=== PATIENT | male | born 1990 | race Caucasian/White ===

== ENCOUNTER 2021-02-11 10:10 | Emergency (ER) | payer OTHER ==
[2021-02-11 10:18] VITALS: RESP 16
--- NOTE | 2021-02-11 11:54 | XR ---
EXAMINATION TYPE: XR knee complete RT DATE OF EXAM: 02/11/2021 COMPARISON: NONE HISTORY: Pain TECHNIQUE: Three views are submitted. FINDINGS: Joint spaces are preserved. Osseous structures are intact. No acute fracture seen. Postsurgical ch anges noted. There is nonspecific sclerosis involving the tibia. Small suprapatellar bursal fluid col lection. Arthropathy of the knee joints. Metallic density adjacent to the lateral femoral condyle cor relate clinically. IMPRESSION: 1. No acute fracture or dislocation. Postsurgical changes are noted with arthropathy. There is sclero tic changes involving the tibia which could be postsurgical related to previous trauma although bone infarct or osseous lesion not entirely excluded.
--- NOTE | 2021-02-11 12:08 | ED ---
General Adult HPI - General Chief complaint: Extremity Injury, Lower Stated complaint: Knee inury Time Seen by Provider: 02/11/21 10:19 Source: patient Mode of arrival: ambulatory Limitations: no limitations - History of Present Illness Initial comments: 30-year-old male presents to the emergency room for chief complaint of right knee pain. Patient states a month ago he fell on the right knee and it has been hurting him some ever since. However today he was walking on the stairs and felt a pop in his knee give out. States that it hasn't painful since that time. States it hurts to strain out all the way. States it hurts to bend and walk on. Patient does have a history of ACL rupture with repair several years ago out of town. Patient denies any fevers or chills.Patient has no other complaints at this time including shortness of breath, chest pain, abdominal pain, nausea or vomiting, headache, or visual changes. - Related Data Home Medications Medication Instructions Recorded Confirmed No Known Home Medications 02/11/21 02/11/21 Allergies Allergy/AdvReac Type Severity Reaction Status Date / Time No Known Allergies Allergy Verified 02/11/21 11:10 Review of Systems ROS Statement: Those systems with pertinent positive or pertinent negative responses have been documented in the HPI. ROS Other: All systems not noted in ROS Statement are negative. Past Medical History Past Medical History: No Reported History History of Any Multi-Drug Resistant Organisms: None Reported Past Surgical History: Appendectomy, Orthopedic Surgery Past Psychological History: No Psychological Hx Reported Smoking Status: Current every day smoker Past Alcohol Use History: Rare Past Drug Use History: Marijuana General Exam Limitations: no limitations General appearance: alert Head exam: Present: atraumatic Eye exam: Present: normal appearance, PERRL, EOMI. Absent: scleral icterus ENT exam: Present: normal exam, mucous membranes moist Neck exam: Present: normal inspection, full ROM. Absent: tenderness Respiratory exam: Present: normal lung sounds bilaterally. Absent: respiratory distress, wheezes Cardiovascular Exam: Present: regular rate, normal rhythm, normal heart sounds GI/Abdominal exam: Present: soft, normal bowel sounds. Absent: distended, tenderness Extremities exam: Present: normal capillary refill (cap refill < 2 seconds, dp pulse 2+ RLE). Absent: full ROM (Patient some limited extension of the right knee. Able to flex the about 90.), tenderness, joint swelling (No swelling in the right knee), calf tenderness Course Vital Signs 02/11/21 10:14 Temperature 99 F Pulse Rate 79 Respiratory 16 Rate Blood Pressure 130/79 O2 Sat by Pulse 97 Oximetry Medical Decision Making - Medical Decision Making X-ray of the right knee shows no acute fracture or dislocation however there are sclerotic changes involving the tibia which could be postsurgical related to previous trauma although bone infarct or osseous lesion not entirely excluded. Patient will need to follow-up with orthopedics for further evaluation of this. However today patient's pain is mechanical which occurred after an injury walking on the stairs when he felt a pop. Patient is able to ambulate on the right leg. Patient did not want any Motrin or Tylenol or any other pain medication. States he threw that up to take anything. He does have a knee brace on which she will continue to wear. He will return for any worsening sy mptoms. Otherwise he will follow-up with orthopedics for likely MRI Disposition Clinical Impression: Knee pain, Bone lesion Disposition: HOME SELF-CARE Condition: Good Instructions (If sedation given, give patient instructions): Knee Pain (ED) Additional Instructions: Please take Motrin and Tylenol for pain. Rest ice and elevate the right knee. Continue to use your knee brace. Follow-up with orthopedics by calling for the earliest appointment. Return to the emergency room for any worsening symptoms. Is patient prescribed a controlled substance at d/c from ED?: No Referrals: Nomi Franz MD [Medical Doctor] - 1-2 days Time of Disposition: 12:07
[2021-02-11 12:41] VITALS: BP 161/78; PULSE 78; TEMP 98.2
== END 2021-02-11 12:40 | disposition home or self-care (01) ==
LOC: EC 10:10
DX: M25.561 Pain in right knee (principal); M89.9 Disorder of bone, unspecified; F17.200 Nicotine dependence, unspecified, uncomplicated; F12.90 Cannabis use, unspecified, uncomplicated; Z90.49 Acquired absence of other specified parts of digestive tract
CPT/HCPCS: 99283

== ENCOUNTER → 2021-03-25 | Outpatient (CLI) | payer OTHER ==
--- NOTE | 2021-03-26 02:29 | MR ---
EXAMINATION TYPE: MR knee RT wo con DATE OF EXAM: 03/25/2021 COMPARISON: None HISTORY: Right knee pain, prior surgery Multiplanar multiecho imaging of the right knee without contrast. There is altered signal in the proximal tibia and distal femur related to reconstructive surgery. The posterior cruciate ligament is intact. Anterior cruciate ligament is not identified. There is no nasreen dence of a fracture. The collateral ligaments appear intact. There is mild knee joint effusion. I see no evidence of a meniscal tear. There is some thinning of the posterior horn of the lateral meniscus . There is some mild increased signal in the subchondral lateral femoral condyle. IMPRESSION: Mild knee joint effusion. Previous surgery. Anterior cruciate ligament not identified. This is consis tent with a complete anterior cruciate ligament tear. No fracture. There is some mild narrowing of the lateral joint space. There is some thinning of the p osterior horn lateral meniscus. Early degenerative cyst formation in the lateral femoral condyle.
== END | disposition home or self-care (01) ==
LOC: RADMRIMAIN 20:05
PROVIDERS: ATTEND Orthopaedic Surgery
DX: M25.461 Effusion, right knee (principal)

== ENCOUNTER 2022-06-08 11:48 | Emergency (ER) | payer OTHER ==
[2022-06-08 11:52] VITALS: BP 142/86; PULSE 105; RESP 20; TEMP 98.2
--- NOTE | 2022-06-08 12:47 | ED ---
Neck Injury/Pain HPI - General Source: patient, RN notes reviewed Mode of arrival: ambulatory Limitations: no limitations <Alexander Ghosh - Last Filed: 06/08/22 12:47> - General Source: patient, RN notes reviewed Mode of arrival: ambulatory Limitations: no limitations <Abeba Cain - Last Filed: 06/08/22 14:25> - General Chief Complaint: Neck Pain/Injury Stated Complaint: bilat hand numbness, tingling Time Seen by Provider: 06/08/22 12:47 - History of Present Illness Initial Comments: 31-year-old male presents emergency Department chief complaint of neck pain. Patient states that he started having some neck pain but he's been having ongoing hand numbness. He states he is having pain radiating down his arm. Patient states that it's onset lightning bolt starts arms. He denies any rectal fissures work obtained work denies any new medications. Denies chest pain or shortness of breath. (Alexander Ghosh) Patient is a 31-year-old male presenting to the emergency room with complaints of neck pain along with bilateral hand numbness. He reports that his hand numbness has been ongoing for approximately 3 weeks and oxide 4 days ago he woke up with a stiff neck and has been having neck pain with shooting "electrical shock" sensations down his spine since that time he woke up with the neck pain. He has not taken any medication to treat his condition. He denies any weakness headache or dizziness. He denies any chest pain, shortness of breath, abdominal pain, nausea, vomiting, fevers or chills. He denies any known trauma or previous carpal tunnel syndrome. He has no significant past medical history and does not take any medications on a regular basis. (Abeba Cain) - Related Data Previous Rx's Medication Instructions Recorded predniSONE [Deltasone] 20 mg PO BID 5 Days #10 tab 06/08/22 Allergies Allergy/AdvReac Type Severity Reaction Status Date / Time No Known Allergies Allergy Verified 06/08/22 13:40 Review of Systems ROS Other: All systems not noted in ROS Statement are negative. <Alexander Ghosh - Last Filed: 06/08/22 12:47> ROS Other: All systems not noted in ROS Statement are negative. <Abeba Cain - Last Filed: 06/08/22 14:25> ROS Statement: Those systems with pertinent positive or pertinent negative responses have been documented in the HPI. Past Medical History Past Medical History: No Reported History History of Any Multi-Drug Resistant Organisms: None Reported Past Surgical History: Appendectomy, Orthopedic Surgery Past Psychological History: No Psychological Hx Reported Smoking Status: Current every day smoker Past Alcohol Use History: Rare Past Drug Use History: Marijuana <Alexander Ghosh - Last Filed: 06/08/22 12:47> Past Medical History: No Reported History History of Any Multi-Drug Resistant Organisms: None Reported Past Surgical History: Appendectomy, Orthopedic Surgery Past Psychological History: No Psychological Hx Reported Smoking Status: Current every day smoker Past Alcohol Use History: Rare Past Drug Use History: Marijuana <Abeba Cain - Last Filed: 06/08/22 14:25> General Exam Limitations: no limitations <Alexander Ghosh - Last Filed: 06/08/22 12:47> <Abeba Cain - Last Filed: 06/08/22 14:25> - General Exam Comments Initial Comments: GENERAL: No acute distress, well developed, well nourished. HEENT: Normocephalic, atraumatic. Pupils equal, round, reactive to light. Moist mucous membranes. LUNGS: No respiratory distress or use of accessory muscles. HEART: Regular rate.. ABDOMEN: Non-distended. BACK: Normal inspection. No spinal tenderness or muscle spasms noted. EXTREMITIES: No edema. No tenderness. Moves all extremities. Bilateral upper extremities strong 5/5. Positive Phalen test. NEUROLOGIC: Alert & oriented x 3. CN II-XII grossly intact. PSYCHIATRIC: Normal affect and behavior. DERMATOLOGIC: Skin intact, without rashes or lesions noted. (Abeba Cain) Course Vital Signs 06/08/22 11:49 Temperature 98.2 F Pulse Rate 105 H Respiratory 20 Rate Blood Pressure 142/86 O2 Sat by Pulse 98 Oximetry Medical Decision Making <Abeba Cain - Last Filed: 06/08/22 14:25> - Medical Decision Making Was pt. sent in by a medical professional or institution? @ -No Did you speak to anyone other than the patient for history? @ -No Did you review nursing and triage notes? @ -Yes and agree. Were old charts reviewed? @ -No Differential Diagnosis? @ -Differential Back Pain: Strain, zoster, cauda equina syndrome, epidural abscess, vertebral osteomyelitis, discitis, fracture, subluxation, disc herniation, DJD, spinal stenosis, dissection, AAA, pancreatitis, peptic ulcer disease, pyelonephritis, kidney stone, this is not meant to be an all-inclusive list. EKG interpreted by me (3pts min.)? @ -None X-rays interpreted by me (1pt min.)? @ -X-ray cervical spine complete interpred by me shows degenerative changes C4- C5 no fractures or dislocation. CT interpreted by me (1pt min.)? @ -None U/S interpreted by me (1pt. min.)? @ -None What testing was considered but not performed? (CT, X-rays, U/S, labs)? Why? @- None What meds were considered but not given? Why? @ -None Did you discuss the management of the patient with other professionals? @ -No Did you reconcile home meds? @ -No Was smoking cessation discussed for >3mins.? @ -None Was critical care preformed (if so, how long)? @ -None Were there social determinants of health that impacted care today? How? (Homelessness, low income, unemployed, alcoholism, drug addiction, transportation, low edu. Level, literacy, decrease access to med. care, nursing home, rehab)? @ -No Was there de-escalation of care discussed even if they declined? (Discuss DNR or withdrawal of care, Hospice)? @ -No What co-morbidities impacted this encounter? (DM, HTN, Smoking, COPD, CAD, Cancer, CVA, Hep., AIDS, mental health diagnosis, sleep apnea, morbid obesity)? @ -No Was patient admitted / discharged? @ -X-ray cervical spine ordered by triage provider. Image as indicated above. No trauma or fracture. No indication for further diagnostic imaging or laboratory studies. Positive Phalen's test. Norflex and Toradol given with some improvement in pain. Education regarding neck pain and carpal tunnel syndrome provided. Questions and concerns answered. Will discharge home in stable condition on prednisone with follow-up with primary care provider. Undiagnosed new problem with uncertain prognosis? @ -None Drug Therapy requiring intensive monitoring for toxicity (Heparin, Nitro, Insulin, Cardizem)? @ -None Were any procedures done? @ -None Diagnosis/symptom? @ -Bilateral carpal tunnel syndrome Acute, or Chronic, or Acute on Chronic? @ -Acute Uncomplicated (without systemic symptoms) or Complicated (systemic symptoms)? @ -Uncomplicated Side effects of treatment? @ -None Exacerbation, Progression, or Severe Exacerbation] @ -No Poses a threat to life or bodily function? @ -No Diagnosis/symptom? @ -Neck pain Acute, or Chronic, or Acute on Chronic? @ -Acute Uncomplicated (without systemic symptoms) or Complicated (systemic symptoms)? @ -Uncomplicated Side effects of treatment? @ -None Exacerbation, Progression, or Severe Exacerbation] @ -No Poses a threat to life or bodily function? @ -No Case discussed with Dr. Cherry. (Abeba Cain) Disposition <Alexander Ghosh - Last Filed: 06/08/22 12:47> Is patient prescribed a controlled substance at d/c from ED?: No Time of Disposition: 14:00 <Abeba Cain - Last Filed: 06/08/22 14:25> Clinical Impression: Cervical radiculopathy, Carpal tunnel syndrome, bilateral Disposition: HOME SELF-CARE Instructions (If sedation given, give patient instructions): Paresthesia (ED), Neck Pain (ED) Additional Instructions: Please complete course of steroid as prescribed. Do not take NSAIDs such as Motrin while taking prednisone. May utilize Tylenol as needed for pain. It is recommended that you obtain wrist splints for carpal tunnel syndrome. Range of motion of the neck is encouraged. Please follow-up with your primary care provider for further evaluation and treatment of your neck and pain and carpal tunnel syndrome. Please return to the Emergency Department if symptoms worsen or any other concerns. Prescriptions: predniSONE [Deltasone] 20 mg PO BID 5 Days #10 tab Referrals: Cherelle Swanson MD [Primary Care Provider] - 1-2 days
[2022-06-08] MEDS ORDERED: KETOROLAC 15 MG/ML 1 ML VIAL IM STA (13:00)
[2022-06-08] MEDS ORDERED: ORPHENADRINE 30 MG/ML 2 ML VIAL IM STA (13:00)
--- NOTE | 2022-06-08 13:02 | XR ---
EXAMINATION TYPE: XR cervical spine comp DATE OF EXAM: 06/08/2022 COMPARISON: NONE HISTORY: Pain TECHNIQUE: Four views are submitted. FINDINGS: The odontoid is intact. There are no compression deformities. The prevertebral soft tissue structur es are within normal limits. Hypertrophic and degenerative disc disease C4-C5. Minimal anterolisthes is of C2 on C3 could be physiologic. IMPRESSION: 1. Mild hypertrophic and degenerative changes C4-C5. Recommend MRI.
== END 2022-06-08 14:15 | disposition home or self-care (01) ==
LOC: EC 11:48
DX: M54.10 Radiculopathy, site unspecified (principal); F17.200 Nicotine dependence, unspecified, uncomplicated; F12.90 Cannabis use, unspecified, uncomplicated
CPT/HCPCS: 99283 ×2; 96372 ×3; 72050; J2360; J1885

== ENCOUNTER → 2022-06-28 | Outpatient (CLI) | payer OTHER ==
--- NOTE | 2022-06-29 16:42 | MR ---
EXAMINATION TYPE: MR cervical spine wo con DATE OF EXAM: 06/28/2022 INDICATION: Patient age:Male; 32 years old; Reason for study: R20.2 PARESTHESIA OF SKIN, M50.90 CERVICAL DISC DI;. Pain, numbness, tingling in ne ck COMPARISON: Radiograph 06/08/2022. TECHNIQUE: Multi planar, multi sequence imaging was performed utilizing: T1-weighted, T2-weighted, an d turbo inversion recovery imaging of the cervical spine. IV Contrast: None FINDINGS: Alignment: The cervical vertebral bodies have preserved heights. Alignment is within normal limits gi samia patient positioning. Bones: Bone signal is within normal limits. No abnormal bony edema on inversion recovery sequences. Cord: The spinal cord is unremarkable with regards to their signal intensity and morphology. Discs: Multilevel disc desiccation is present. C2-C3: No significant disc pathology. The spinal canal is patent. No neural foraminal stenosis. C3-C4: No significant disc pathology. The spinal canal is patent. No neural foraminal stenosis. C4-C5: No significant disc pathology. The spinal canal is patent. No neural foraminal stenosis. C5-C6: No significant disc pathology. The spinal canal is patent. No neural foraminal stenosis. C6-C7: A disc osteophyte complex is present which minimally narrows the ventral subarachnoid space. No neural foraminal stenosis. C7-T1: No significant disc pathology. The spinal canal is patent. No neural foraminal stenosis. IMPRESSION: No evidence for disc herniation or significant spinal canal or neural foraminal stenosis.
== END | disposition home or self-care (01) ==
LOC: RADMRIMAIN 17:31
PROVIDERS: ATTEND Family Medicine
DX: R20.2 Paresthesia of skin (principal); M50.90 Cervical disc disorder, unspecified, unspecified cervical region
CPT/HCPCS: 72141

== ENCOUNTER 2022-07-01 11:35 | Emergency (ER) | payer OTHER ==
[2022-07-01 11:44] VITALS: BP 150/94; PULSE 90; RESP 16; TEMP 99
--- NOTE | 2022-07-01 12:31 | ED ---
General Adult HPI - General Chief complaint: Weakness Stated complaint: Body Aches & Numbness Time Seen by Provider: 07/01/22 11:51 Source: patient Mode of arrival: ambulatory Limitations: no limitations - History of Present Illness Initial comments: Dictation was produced using [employer] dictation software. please excuse any grammatical, word or spelling errors. Chief Complaint: 32-year-old male presents emergency Department with neck pain radiates to his body History of Present Illness: 32-year-old male he's been suffering from chronic neck pain. His neck pain got significantly worse over the last week. 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 He states whenever he bends his neck forward that he has a shooting pain down his whole body. Denies any fever, chills or night sweats. Does report having body aches for the last 2-3 days. Given an MRI ordered by his primary care physician. MRIs performed 3 da ys ago. He was instructed to come to the emergency department if he had any worsening symptoms. Patient states that he gets a shocklike sensation that goes down his arms back and legs whenever he flexes his neck forward. Denies any fever or constitutional symptoms. The ROS documented in this emergency department record has been reviewed and confirmed by me. Those systems with pertinent positive or negative responses have been documented in the HPI. All other systems are other negative and/or noncontributory. PHYSICAL EXAM: General Impression: Alert and oriented x3, not in acute distress HEENT: Normocephalic atraumatic, extra-ocular movements intact, pupils equal and reactive to light bilaterally, mucous membranes moist. Cardiovascular: Heart regular rate and rhythm Chest: Able to complete full sentences, no retractions, no tachypnea Abdomen: abdomen soft, non-tender, non-distended, no organomegaly Musculoskeletal: Pulses present and equal in all extremities, no peripheral reyna a Motor: no focal deficits noted Neurological: CN II-XII grossly intact, no focal motor or sensory deficits noted, negative Lhermitte's, negative Kernig's, negative Brudzinski's Skin: Intact with no visualized rashes Psych: Normal affect and mood ED course: 32-year-old male presents emergency part for acute on chronic neck pain. Signs upon arrival are within acceptable limits. MRI from 3 days ago was reviewed showing no pathology except for a osteophyte at the C6 to C7 disc showing osteophyte which minimally narrows the ventral subarachnoid. Otherwise no abnormalities noted. Nursing notes and chart review was performed Disposition discussed in detail with patient's primary care physician Dr. Dylon Stewart who is agreeable with discharge with outpatient referral to pet nutrition specialist. Was pt. sent in by a medical professional or institution (, PA, INSIDE SALES PROFESSIONAL, urgent care, hospital, or fci...) When possible be specific @ -No Did you speak to anyone other than the patient for history (EMS, parent, family, police, friend...)? What history was obtained from this source @ -No Did you review nursing and triage notes (agree or disagree)? Why? @ -I reviewed and agree with nursing and triage notes Were old charts reviewed (outside hosp., previous admission, EMS record, old EKG, old radiological studies, urgent care reports/EKG's, fci records)? Report findings @ -MRI from 3 days ago was reviewed Differential Diagnosis (chest pain, altered mental status, abdominal pain women, abdominal pain men, vaginal bleeding, weakness, fever, dyspnea, syncope, headache, dizziness, GI bleed, back pain, seizure, CVA, palpatations, mental health)? @ -Differential Back Pain: Strain, zoster, cauda equina syndrome, epidural abscess, vertebral osteomyelitis, discitis, fracture, subluxation, disc herniation, DJD, spinal stenosis, dissection, AAA, pancreatitis, peptic ulcer disease, pyelonephritis, kidney stone, this is not meant to be an all-inclusive list. EKG interpreted by me (3pts min.). @ -None done X-rays interpreted by me (1pt min.). @ -None done CT interpreted by me (1pt min.). @ -None done U/S interpreted by me (1pt. min.). @ -None done What testing was considered but not performed or refused? (CT, X-rays, U/S, labs)? Why? @ -Was considered however patient. Got an MRI 3 days ago What meds were considered but not given or refused? Why? @ -Steroids were considered Did you discuss the management of the patient with other professionals (professionals i.e. , GLEN, INSIDE SALES PROFESSIONAL, lab, RT, psych nurse, high school social studies teacher, language and literature division chair, teacher, air support control officer, renal case manager)? Give summary @ -See above Was smoking cessation discussed for >3mins.? @ -No Was critical care preformed (if so, how long)? @ -No Were there social determinants of health that impacted care today? How? (Homelessness, low income, unemployed, alcoholism, drug addiction, transportation, low edu. Level, literacy, decrease access to med. care, [facility], rehab)? @ -No Was there de-escalation of care discussed even if they declined (Discuss DNR or withdrawal of care, Hospice)? DNR status @ -No What co-morbidities impacted this encounter? (DM, HTN, Smoking, COPD, CAD, Cancer, CVA, ARF, Chemo, Hep., AIDS, mental health diagnosis, sleep apnea, morbid obesity)? @ -None Was patient admitted / discharged? Hospital course, mention meds given and rout e, prescriptions, significant lab abnormalities, going to OR and other pertinent info. @ -See above Undiagnosed new problem with uncertain prognosis? @ -No Drug Therapy requiring intensive monitoring for toxicity (Heparin, Nitro, Insulin, Cardizem)? @ -No Were any procedures done? @ -No Diagnosis/symptom? @ -Cervical strain Acute, or Chronic, or Acute on Chronic? @ -Acute Uncomplicated (without systemic symptoms) or Complicated (systemic symptoms)? @ -Uncomplicated Side effects of treatment? @ -No Exacerbation, Progression, or Severe Exacerbation? @ -No Poses a threat to life or bodily function? How? (Chest pain, [place], [place], pneumonia, PE, COPD, DKA, ARF, appy, cholecystitis, CVA, Diverticulitis, Homicidal, Suicidal, threat to staff... and all critical care pts) @ -No - Related Data Previous Rx's Medication Instructions Recorded predniSONE [Deltasone] 20 mg PO BID 5 Days #10 tab 06/08/22 Allergies Allergy/AdvReac Type Severity Reaction Status Date / Time No Known Allergies Allergy Verified 06/08/22 13:40 Review of Systems ROS Statement: Those systems with pertinent positive or pertinent negative responses have been documented in the HPI. ROS Other: All systems not noted in ROS Statement are negative. Past Medical History Past Medical History: No Reported History History of Any Multi-Drug Resistant Organisms: None Reported Past Surgical History: Appendectomy, Orthopedic Surgery Past Psychological History: No Psychological Hx Reported Smoking Status: Current every day smoker Past Alcohol Use History: Rare Past Drug Use History: Marijuana General Exam Limitations: no limitations Course Vital Signs 07/01/22 11:40 Temperature 99 F Pulse Rate 90 Respiratory 16 Rate Blood Pressure 150/94 O2 Sat by Pulse 100 Oximetry Disposition Clinical Impression: Cervical strain Disposition: HOME SELF-CARE Condition: Good Instructions (If sedation given, give patient instructions): Cervical Strain (ED) Is patient prescribed a controlled substance at d/c from ED?: No Referrals: Cherelle Swanson MD [Primary Care Provider] - 1-2 days Angelica Renee DO [Doctor of Osteopathic Medicine] - 1-2 days Dwaine Guillen DO [Doctor of Osteopathic Medicine] - 1-2 days Time of Disposition: 13:06
== END 2022-07-01 13:46 | disposition home or self-care (01) ==
LOC: EC 11:35
DX: S16.1XXA Strain of muscle, fascia and tendon at neck level, initial encounter (principal); F17.200 Nicotine dependence, unspecified, uncomplicated; F12.90 Cannabis use, unspecified, uncomplicated; Z90.49 Acquired absence of other specified parts of digestive tract; Z20.822 Contact with and (suspected) exposure to COVID-19; X58.XXXA Exposure to other specified factors, initial encounter
CPT/HCPCS: 87636; 99285

== ENCOUNTER 2022-07-04 19:45 | Emergency (ER) | payer OTHER ==
[2022-07-04 19:52] VITALS: BP 152/86; PULSE 111; RESP 16; TEMP 98.8
--- NOTE | 2022-07-04 19:58 | ED ---
General Adult HPI - General Chief complaint: Weakness Stated complaint: body aches Time Seen by Provider: 07/04/22 19:56 Source: patient Mode of arrival: ambulatory Limitations: no limitations - History of Present Illness Initial comments: Patient presents to the ED complaining of having diffuse "body aches" for the past 3 days or so. Patient was seen in the ED for these symptoms when they began 3 days ago, and he had negative viral studies obtained in the ED at that time. Patient states that his bodyaches continue, and they seemed to have worsened, particularly in his bilateral lower extremities. Patient denies any known trauma or injury, fever or chills, headache, focal neuro deficit, sore throat, chest pain, dyspnea, cough or cold symptoms, palpitations, dizziness, abdominal pain, nausea/vomiting/diarrhea, dysuria or urinary symptoms, decreased urine output, leg or calf swelling, or any other symptoms or complaints. - Related Data Home Medications Medication Instructions Recorded Confirmed No Known Home Medications 07/04/22 07/04/22 Allergies Allergy/AdvReac Type Severity Reaction Status Date / Time No Known Allergies Allergy Verified 07/04/22 21:21 Review of Systems ROS Statement: Those systems with pertinent positive or pertinent negative responses have been documented in the HPI. ROS Other: All systems not noted in ROS Statement are negative. Past Medical History Past Medical History: No Reported History History of Any Multi-Drug Resistant Organisms: None Reported Past Surgical History: Appendectomy, Orthopedic Surgery Past Psychological History: No Psychological Hx Reported Smoking Status: Current every day smoker Past Alcohol Use History: Rare Past Drug Use History: Marijuana General Exam Limitations: no limitations General appearance: alert, in no apparent distress Head exam: Present: atraumatic, normocephalic Eye exam: Present: normal appearance, EOMI ENT exam: Present: normal oropharynx, mucous membranes moist Neck exam: Present: other (Trachea is in midline). Absent: tenderness Respiratory exam: Present: normal lung sounds bilaterally. Absent: respiratory distress, wheezes, rales, rhonchi, stridor Cardiovascular Exam: Present: normal rhythm, tachycardia, normal heart sounds, other (Normal radial pulses bilaterally) GI/Abdominal exam: Present: soft. Absent: distended, tenderness, guarding Extremities exam: Present: full ROM, other (Negative Homans sign bilaterally). Absent: tenderness, pedal edema, calf tenderness Back exam: Absent: tenderness Neurological exam: Present: alert, oriented X3. Absent: motor sensory deficit Psychiatric exam: Present: normal affect, normal mood Skin exam: Present: warm, dry, intact, normal color Course Vital Signs 07/04/22 19:47 Temperature 98.8 F Pulse Rate 111 H Respiratory 16 Rate Blood Pressure 152/86 O2 Sat by Pulse 99 Oximetry - Reevaluation(s) Reevaluation #1: 07/04/22 21:50 Patient denies development of any new symptoms while in the ED. Patient remains alert and breathing comfortably. Patient's tachycardia has now resolved. Patient is aware of his test results, and he feels comfortable being discharged home at this time. Patient was counseled about body aches/myalgias, and he was clearly explained return and follow-up instructions. Patient was instructed to follow up closely with his primary care provider. Patient feels comfortable with this plan. Medical Decision Making - Medical Decision Making Was pt. sent in by a medical professional or institution (, PA, LIFTER/DRIVER, urgent care, hospital, or skilled nursing...) When possible be specific @ -No Did you speak to anyone other than the patient for history (EMS, parent, family, police, friend...)? What history was obtained from this source @ -No Did you review nursing and triage notes (agree or disagree)? Why? @ -I reviewed and agree with nursing and triage notes Were old charts reviewed (outside hosp., previous admission, EMS record, old EKG, old radiological studies, urgent care reports/EKG's, skilled nursing records)? Report findings @ -No old charts were reviewed Differential Diagnosis (chest pain, altered mental status, abdominal pain women, abdominal pain men, vaginal bleeding, weakness, fever, dyspnea, syncope, headache, dizziness, GI bleed, back pain, seizure, CVA, palpatations, mental health)? @ -Myalgias, muscle spasms, viral illness, rhabdomyolysis, muscle strain EKG interpreted by me (3pts min.). @ -None done X-rays interpreted by me (1pt min.). @ -None done CT interpreted by me (1pt min.). @ -None done U/S interpreted by me (1pt. min.). @ -None done What testing was considered but not performed or refused? (CT, X-rays, U/S, labs)? Why? @ -None What meds were considered but not given or refused? Why? @ -None Did you discuss the management of the patient with other professionals (professionals i.e. , PA, LIFTER/DRIVER, lab, RT, psych nurse, social psychologist, home health specialist, teacher, purchasing officer, patient case manager)? Give summary @ -No Was smoking cessation discussed for >3mins.? @ -No Was critical care preformed (if so, how long)? @ -No Were there social determinants of health that impacted care today? How? (Homelessness, low income, unemployed, alcoholism, drug addiction, transportation, low edu. Level, literacy, decrease access to med. care, [facility], rehab)? @ -No Was there de-escalation of care discussed even if they declined (Discuss DNR or withdrawal of care, Hospice)? DNR status @ -No What co-morbidities impacted this encounter? (DM, HTN, Smoking, COPD, CAD, Cancer, CVA, ARF, Chemo, Hep., AIDS, mental health diagnosis, sleep apnea, morbid obesity)? @ -None Was patient admitted / discharged? Hospital course, mention meds given and route, prescriptions, significant lab abnormalities, going to OR and other pertinent info. @ -Patient's labs are fairly unremarkable, including a normal creatinine kinase level and negative viral studies. I am uncertain of the etiology of the patient's reported body aches, but I do not suspect an emergent medical condition at this time. Will discharge patient home at this time. Patient feels comfortable with this plan. Undiagnosed new problem with uncertain prognosis? @ -No Drug Therapy requiring intensive monitoring for toxicity (Heparin, Nitro, Insulin, Cardizem)? @ -No Were any procedures done? @ -No Diagnosis/symptom? @ -Bodyaches Acute, or Chronic, or Acute on Chronic? @ -Acute Uncomplicated (without systemic symptoms) or Complicated (systemic symptoms)? @ -Uncomplicated] Side effects of treatment? @ -No Exacerbation, Progression, or Severe Exacerbation? @ -No Poses a threat to life or bodily function? How? (Chest pain, USA, [place], pneumonia, PE, COPD, DKA, ARF, appy, cholecystitis, CVA, Diverticulitis, Homicidal, Suicidal, threat to staff... and all critical care pts) @ -No - Lab Data Result diagrams: 07/04/22 20:15 07/04/22 20:15 Lab Results 07/04/22 07/04/22 07/04/22 Range/Units 19:54 20:15 20:15 WBC 9.7 (3.8-10.6) k/uL RBC 5.12 (4.30-5.90) m/uL Hgb 15.5 (13.0-17.5) gm/dL Hct 43.8 (39.0-53.0) % MCV 85.5 (80.0-100.0) fL MCH 30.3 (25.0-35.0) pg MCHC 35.5 (31.0-37.0) g/dL RDW 12.4 (11.5-15.5) % Plt Count 231 (150-450) k/uL MPV 7.1 Neutrophils % 52 % Lymphocytes % 36 % Monocytes % 4 % Eosinophils % 5 % Basophils % 1 % Neutrophils # 5.0 (1.3-7.7) k/uL Lymphocytes # 3.5 (1.0-4.8) k/uL Monocytes # 0.4 (0-1.0) k/uL Eosinophils # 0.5 (0-0.7) k/uL Basophils # 0.1 (0-0.2) k/uL Sodium 143 (137-145) mmol/L Potassium 3.7 (3.5-5.1) mmol/L Chloride 110 H (98-107) mmol/L Carbon Dioxide 25 (22-30) mmol/L Anion Gap 8 mmol/L BUN 13 (9-20) mg/dL Creatinine 0.80 (0.66-1.25) mg/dL Est GFR (CKD-EPI)AfAm >90 (>60 ml/min/1.73 sqM) Est GFR (CKD-EPI)NonAf >90 (>60 ml/min/1.73 sqM) Glucose 155 H (74-99) mg/dL Calcium 8.4 (8.4-10.2) mg/dL Magnesium 1.6 (1.6-2.3) mg/dL Total Bilirubin 0.2 (0.2-1.3) mg/dL AST 22 (17-59) U/L ALT 31 (4-49) U/L Alkaline Phosphatase 42 (38-126) U/L Creatine Kinase 62 (55-170) U/L Total Protein 6.4 (6.3-8.2) g/dL Albumin 4.2 (3.5-5.0) g/dL Influenza Type A (PCR) Not Detected (Not Detectd) Influenza Type B (PCR) Not Detected (Not Detectd) RSV (PCR) Not Detected (Not Detectd) SARS-CoV-2 (PCR) Not Detected (Not Detectd) Disposition Clinical Impression: Body aches Disposition: HOME SELF-CARE Condition: Stable Instructions (If sedation given, give patient instructions): Pain Management (ED), Musculoskeletal Pain (ED) Additional Instructions: Return to the ER immediately should you develop new or worsening pain, a fever, shortness of breath, feeling dizzy or faint, or new or worsening symptoms. Follow up closely with your primary care provider. Is patient prescribed a controlled substance at d/c from ED?: No Referrals: Cherelle Swanson MD [Primary Care Provider] - 1-2 days Time of Disposition: 21:54
[2022-07-04] MEDS ORDERED: SODIUM CHLORIDE 0.9% 1,000 ML IV STA (20:02)
[2022-07-04 20:26] LABS: Basophils # (A) 0.1 k/uL (0-0.2); Basophils % (A) 1 %; Eosinophils # (A) 0.5 k/uL (0-0.7); Eosinophils % (A) 5 %; HCT 43.8 % (39.0-53.0); HGB 15.5 gm/dL (13.0-17.5); Lymphocytes # (A) 3.5 k/uL (1.0-4.8); Lymphocytes % (A) 36 %; MCH 30.3 pg (25.0-35.0); MCHC 35.5 g/dL (31.0-37.0); MCV 85.5 fL (80.0-100.0); Mean Platelet Volume 7.1; Monocytes # (A) 0.4 k/uL (0-1.0); Monocytes % (A) 4 %; Neutrophils % (A) 52 %; Platelet Count 231 k/uL (150-450); RBC 5.12 m/uL (4.30-5.90); RDW 12.4 % (11.5-15.5); WBC 9.7 k/uL (3.8-10.6)
[2022-07-04 20:43] LABS: ALT 31 U/L (4-49); AST 22 U/L (17-59); African American GFR (CKD) >90 (>60 ml/min/1.73 sqM); Albumin 4.2 g/dL (3.5-5.0); Alkaline Phosphatase 42 U/L (38-126); Anion Gap 8 mmol/L; Blood Urea Nitrogen 13 mg/dL (9-20); Calcium 8.4 mg/dL (8.4-10.2); Carbon Dioxide 25 mmol/L (22-30); Chloride 110 mmol/L (98-107); Creatine Kinase 62 U/L (55-170); Glucose 155 mg/dL (74-99); Magnesium 1.6 mg/dL (1.6-2.3); Non-African American GFR(CKD) >90 (>60 ml/min/1.73 sqM); Potassium 3.7 mmol/L (3.5-5.1); Sodium 143 mmol/L (137-145); Total Bilirubin 0.2 mg/dL (0.2-1.3); Total Protein 6.4 g/dL (6.3-8.2)
== END 2022-07-04 22:04 | disposition home or self-care (01) ==
LOC: EC 19:45
DX: M79.10 Myalgia, unspecified site (principal); F17.200 Nicotine dependence, unspecified, uncomplicated; F12.90 Cannabis use, unspecified, uncomplicated; Z20.822 Contact with and (suspected) exposure to COVID-19
CPT/HCPCS: 36415; 80053; 82550; 83735; 85025; 87636; 96360; 99285

== ENCOUNTER 2022-08-29 11:04 | Emergency (ER) | payer OTHER ==
[2022-08-29] MEDS ORDERED: SODIUM CHLORIDE 0.9% 1,000 ML IV STA (11:33)
[2022-08-29 12:15] LABS: Basophils # (A) 0.1 k/uL (0-0.2); Basophils % (A) 1 %; Eosinophils # (A) 0.2 k/uL (0-0.7); Eosinophils % (A) 2 %; Lymphocytes # (A) 2.6 k/uL (1.0-4.8); Lymphocytes % (A) 28 %; MCH 30.3 pg (25.0-35.0); MCHC 35.4 g/dL (31.0-37.0); MCV 85.7 fL (80.0-100.0); Mean Platelet Volume 7.3; Monocytes # (A) 0.5 k/uL (0-1.0); Monocytes % (A) 5 %; Neutrophils # (A) 5.8 k/uL (1.3-7.7); Neutrophils % (A) 62 %; Platelet Count 276 k/uL (150-450); RDW 12.5 % (11.5-15.5); WBC 9.3 k/uL (3.8-10.6)
--- NOTE | 2022-08-29 12:30 | XR ---
EXAMINATION TYPE: XR chest 2V DATE OF EXAM: 08/29/2022 COMPARISON: None INDICATION: Difficulty breathing short of breath congestion TECHNIQUE: Frontal and lateral views of the chest are obtained. FINDINGS: The heart size is normal. The pulmonary vasculature is normal. The lungs are clear. IMPRESSION: 1. No acute pulmonary process.
[2022-08-29 12:33] LABS: INR 1.1 (<1.2); Partial Thromboplastin Time 23.4 sec (22.0-30.0)
--- NOTE | 2022-08-29 12:34 | ED ---
SOB HPI - General Chief Complaint: Shortness of Breath Stated Complaint: ROSEMARY Time Seen by Provider: 08/29/22 11:16 Source: patient Mode of arrival: ambulatory Limitations: no limitations - History of Present Illness Initial Comments: Patient is a 32-year-old male who presents to the emergency department for shortness of breath. It started 1 week ago. Patient denies any recent falls or injury to the chest. Patient feels mildly short of breath at rest but mostly feels short of breath with activity. Patient states he stopped smoking 3 days ago however the shortness of breath continued. He is a daily 1 pack smoker. He denies chest pain, leg pain and swelling. He denies cough. He does admit to some mild congestion. He denies fever, chills, nausea, vomiting. Denies history of DVT and PE. Denies hormone replacement, long car rides, airplane travel, surgical interventions, known cancers, family history of clotting, tobacco use. - Related Data Home Medications Medication Instructions Recorded Confirmed No Known Home Medications 07/04/22 07/04/22 Allergies Allergy/AdvReac Type Severity Reaction Status Date / Time No Known Allergies Allergy Verified 08/29/22 11:10 Review of Systems ROS Statement: Those systems with pertinent positive or pertinent negative responses have been documented in the HPI. ROS Other: All systems not noted in ROS Statement are negative. Past Medical History Past Medical History: GERD/Reflux History of Any Multi-Drug Resistant Organisms: None Reported Past Surgical History: Appendectomy, Orthopedic Surgery Additional Past Surgical History / Comment(s): rt knee- ACL repair Past Psychological History: No Psychological Hx Reported Smoking Status: Current every day smoker Past Alcohol Use History: Rare Past Drug Use History: Marijuana General Exam Limitations: no limitations General appearance: alert, in no apparent distress Respiratory exam: Present: normal lung sounds bilaterally. Absent: respiratory distress, wheezes, rales, rhonchi, stridor Cardiovascular Exam: Present: regular rate, normal rhythm, normal heart sounds. Absent: systolic murmur, diastolic murmur, rubs, gallop, clicks GI/Abdominal exam: Present: soft, normal bowel sounds. Absent: distended, tenderness, guarding, rebound, rigid Neurological exam: Present: alert, oriented X3, CN II-XII intact Psychiatric exam: Present: normal affect, normal mood Skin exam: Present: warm, dry, intact, normal color. Absent: rash Course Vital Signs 08/29/22 08/29/22 08/29/22 11:08 12:32 13:30 Temperature 98.5 F Pulse Rate 102 H 77 79 Respiratory 20 16 16 Rate Blood Pressure 134/100 139/95 117/91 O2 Sat by Pulse 97 98 96 Oximetry 08/29/22 14:02 Temperature 98.9 F Pulse Rate 91 Respiratory 18 Rate Blood Pressure 113/74 O2 Sat by Pulse 99 Oximetry Medical Decision Making - Medical Decision Making EKG taken at 11:48, temperature by me Sinus rhythm, borderline right axis deviation Ventricular rate 88, IA interval 140, QRS duration 90, QTC 418 Was pt. sent in by a medical professional or institution (, PA, GROUND EQUIPMENT MECHANIC, urgent care, hospital, or shelter...) When possible be specific @ -No Did you speak to anyone other than the patient for history (EMS, parent, family, police, friend...)? What history was obtained from this source @ -No Did you review nursing and triage notes (agree or disagree)? Why? @ -I reviewed and agree with nursing and triage notes Were old charts reviewed (outside hosp., previous admission, EMS record, old EKG, old radiological studies, urgent care reports/EKG's, shelter records)? Report findings @ -No old charts were reviewed Differential Diagnosis (chest pain, altered mental status, abdominal pain women, abdominal pain men, vaginal bleeding, weakness, fever, dyspnea, syncope, headache, dizziness, GI bleed, back pain, seizure, CVA, palpatations, mental health)? @ -Differential Dyspnea: Coronary syndrome, arrhythmia, tamponade, asthma, COPD, pulmonary embolism, pneumonia, pneumothorax, pulmonary effusion, anaphylaxis, diabetic ketoacidosis, flailed chest, pulmonary contusion, diaphragmatic rupture, anemia, neuromuscular, this is not meant to be an all-inclusive list. EKG interpreted by me (3pts min.). @ -As above X-rays interpreted by me (1pt min.). @ -Yes, chest x-ray negative for acute process CT interpreted by me (1pt min.). @ -None done U/S interpreted by me (1pt. min.). @ -None done What testing was considered but not performed or refused? (CT, X-rays, U/S, labs)? Why? @ -None What meds were considered but not given or refused? Why? @ -None Did you discuss the management of the patient with other professionals (professionals i.e. , PA, GROUND EQUIPMENT MECHANIC, lab, RT, psych nurse, medical social worker, pairing machine operator, teacher, zoology technical officer, watch caser)? Give summary @ -No Was smoking cessation discussed for >3mins.? @ -I discussed smoking cessation for greater than 3 minutes. The risk of smoking were discussed with the patient including but not limited to risks of cancer, stroke, coronary artery disease and COPD. Also discussed with patient were multiple methods of quitting smoking. Lastly we discussed the financial cost of smoking. Was critical care preformed (if so, how long)? @ -No Were there social determinants of health that impacted care today? How? (Homelessness, low income, unemployed, alcoholism, drug addiction, transportation, low edu. Level, literacy, decrease access to med. care, halfway, rehab)? @ -No Was there de-escalation of care discussed even if they declined (Discuss DNR or withdrawal of care, Hospice)? DNR status @ -No What co-morbidities impacted this encounter? (DM, HTN, Smoking, COPD, CAD, Cancer, CVA, ARF, Chemo, Hep., AIDS, mental health diagnosis, sleep apnea, morbid obesity)? @ -Smoking Was patient admitted / discharged? Hospital course, mention meds given and route, prescriptions, significant lab abnormalities, going to OR and other per tinent info. @ -Patient presenting with shortness of breath. No chest pain. Patient well- appearing is no evidence of respiratory distress. No hypoxia. EKG shows no acute anemia. Laboratory studies obtained. Troponin and d-dimer are within normal limits. COVID-19, RSV, influenza and infect nondetected. Chest x-ray negative for acute process. Results discussed with patient. Discussed that shortness of breath is likely related to heavy smoking. Patient educated and will follow up with his primary care provider. Undiagnosed new problem with uncertain prognosis? @ -No Drug Therapy requiring intensive monitoring for toxicity (Heparin, Nitro, Insulin, Cardizem)? @ -No Were any procedures done? @ -[No] Diagnosis/symptom? @ -SOB Acute, or Chronic, or Acute on Chronic? @ -acute Uncomplicated (without systemic symptoms) or Complicated (systemic symptoms)? @ -uncomplicated Side effects of treatment? @ -[No] Exacerbation, Progression, or Severe Exacerbation? @ -[No] Poses a threat to life or bodily function? How? (Chest pain, USA, [place], pneumonia, PE, COPD, DKA, ARF, appy, cholecystitis, CVA, Diverticulitis, Homicidal, Suicidal, threat to staff... and all critical care pts) @ -[No] Dr. Quintero is my attending - Lab Data Result diagrams: 08/29/22 11:43 08/29/22 11:43 Lab Results 08/29/22 08/29/22 08/29/22 Range/Units 11:43 11:43 11:43 WBC 9.3 (3.8-10.6) k/uL RBC 5.60 (4.30-5.90) m/uL Hgb 17.0 (13.0-17.5) gm/dL Hct 48.0 (39.0-53.0) % MCV 85.7 (80.0-100.0) fL MCH 30.3 (25.0-35.0) pg MCHC 35.4 (31.0-37.0) g/dL RDW 12.5 (11.5-15.5) % Plt Count 276 (150-450) k/uL MPV 7.3 Neutrophils % 62 % Lymphocytes % 28 % Monocytes % 5 % Eosinophils % 2 % Basophils % 1 % Neutrophils # 5.8 (1.3-7.7) k/uL Lymphocytes # 2.6 (1.0-4.8) k/uL Monocytes # 0.5 (0-1.0) k/uL Eosinophils # 0.2 (0-0.7) k/uL Basophils # 0.1 (0-0.2) k/uL PT 11.0 (9.0-12.0) sec INR 1.1 (<1.2) APTT 23.4 (22.0-30.0) sec D-Dimer 0.22 (<0.60) mg/L FEU Sodium 142 (137-145) mmol/L Potassium 4.2 (3.5-5.1) mmol/L Chloride 111 H (98-107) mmol/L Carbon Dioxide 24 (22-30) mmol/L Anion Gap 7 mmol/L BUN 19 (9-20) mg/dL Creatinine 0.91 (0.66-1.25) mg/dL Est GFR (CKD-EPI)AfAm >90 (>60 ml/min/1.73 sqM) Est GFR (CKD-EPI)NonAf >90 (>60 ml/min/1.73 sqM) Glucose 94 (74-99) mg/dL Calcium 9.3 (8.4-10.2) mg/dL Total Bilirubin 0.9 (0.2-1.3) mg/dL AST 24 (17-59) U/L ALT 34 (4-49) U/L Alkaline Phosphatase 46 (38-126) U/L Troponin I (0.000-0.034) ng/mL Total Protein 7.2 (6.3-8.2) g/dL Albumin 4.5 (3.5-5.0) g/dL Influenza Type A (PCR) (Not Detectd) Influenza Type B (PCR) (Not Detectd) RSV (PCR) (Not Detectd) SARS-CoV-2 (PCR) (Not Detectd) 08/29/22 08/29/22 Range/Units 11:43 11:43 WBC (3.8-10.6) k/uL RBC (4.30-5.90) m/uL Hgb (13.0-17.5) gm/dL Hct (39.0-53.0) % MCV (80.0-100.0) fL MCH (25.0-35.0) pg MCHC (31.0-37.0) g/dL RDW (11.5-15.5) % Plt Count (150-450) k/uL MPV Neutrophils % % Lymphocytes % % Monocytes % % Eosinophils % % Basophils % % Neutrophils # (1.3-7.7) k/uL Lymphocytes # (1.0-4.8) k/uL Monocytes # (0-1.0) k/uL Eosinophils # (0-0.7) k/uL Basophils # (0-0.2) k/uL PT (9.0-12.0) sec INR (<1.2) APTT (22.0-30.0) sec D-Dimer (<0.60) mg/L FEU Sodium (137-145) mmol/L Potassium (3.5-5.1) mmol/L Chloride (98-107) mmol/L Carbon Dioxide (22-30) mmol/L Anion Gap mmol/L BUN (9-20) mg/dL Creatinine (0.66-1.25) mg/dL Est GFR (CKD-EPI)AfAm (>60 ml/min/1.73 sqM) Est GFR (CKD-EPI)NonAf (>60 ml/min/1.73 sqM) Glucose (74-99) mg/dL Calcium (8.4-10.2) mg/dL Total Bilirubin (0.2-1.3) mg/dL AST (17-59) U/L ALT (4-49) U/L Alkaline Phosphatase (38-126) U/L Troponin I <0.012 (0.000-0.034) ng/mL Total Protein (6.3-8.2) g/dL Albumin (3.5-5.0) g/dL Influenza Type A (PCR) Not Detected (Not Detectd) Influenza Type B (PCR) Not Detected (Not Detectd) RSV (PCR) Not Detected (Not Detectd) SARS-CoV-2 (PCR) Not Detected (Not Detectd) Disposition Clinical Impression: Shortness of breath Disposition: HOME SELF-CARE Condition: Good Instructions (If sedation given, give patient instructions): How to Stop Smoking (ED), Dyspnea (ED) Additional Instructions: Follow-up with primary care provider in one to 2 days. It is important to stop smoking tobacco. Return to the emergency department if you experience new, concerning, or worsening symptoms. Is patient prescribed a controlled substance at d/c from ED?: No Referrals: Cherelle Swanson MD [Primary Care Provider] - 1-2 days
[2022-08-29 12:50] LABS: ALT 34 U/L (4-49); AST 24 U/L (17-59); African American GFR (CKD) >90 (>60 ml/min/1.73 sqM); Albumin 4.5 g/dL (3.5-5.0); Alkaline Phosphatase 46 U/L (38-126); Anion Gap 7 mmol/L; Blood Urea Nitrogen 19 mg/dL (9-20); Calcium 9.3 mg/dL (8.4-10.2); Carbon Dioxide 24 mmol/L (22-30); Chloride 111 mmol/L (98-107); Glucose 94 mg/dL (74-99); Non-African American GFR(CKD) >90 (>60 ml/min/1.73 sqM); Potassium 4.2 mmol/L (3.5-5.1); Sodium 142 mmol/L (137-145); Total Bilirubin 0.9 mg/dL (0.2-1.3); Total Protein 7.2 g/dL (6.3-8.2)
[2022-08-29 14:04] VITALS: BP 113/74; PULSE 91; RESP 18; TEMP 98.9
== END 2022-08-29 14:02 | disposition home or self-care (01) ==
LOC: EC 11:04
DX: R06.02 Shortness of breath (principal); F12.90 Cannabis use, unspecified, uncomplicated; F17.200 Nicotine dependence, unspecified, uncomplicated; Z20.822 Contact with and (suspected) exposure to COVID-19
CPT/HCPCS: 36415; 71046; 80053; 84484; 85025; 85379; 85610; 85730; 87636; 93005; 96360; 99285

== ENCOUNTER 2023-02-18 18:52 | Emergency (ER) | payer OTHER ==
[2023-02-18 18:58] VITALS: BP 152/99; PULSE 115; RESP 22; TEMP 100
[2023-02-18] MEDS ORDERED: IBUPROFEN 600 MG TAB PO STA (20:04)
[2023-02-18] MEDS ORDERED: ACETAMINOPHEN TAB 325 MG TAB PO STA (20:04)
--- NOTE | 2023-02-18 20:05 | ED ---
URI HPI - General Chief Complaint: Upper Respiratory Infection Stated Complaint: fever Time Seen by Provider: 02/18/23 19:56 Source: patient Mode of arrival: ambulatory Limitations: no limitations - History of Present Illness Initial Comments: 32-year-old male presenting with chief complaint of fever. He states symptoms started yesterday. Patient admits to cough, nasal congestion, sore throat. He has been taking [place] at home. No abdominal pain, nausea, vomiting, diarrhea. No difficulty breathing or swallowing. No chest pain. - Related Data Home Medications Medication Instructions Recorded Confirmed No Known Home Medications 07/04/22 07/04/22 Allergies Allergy/AdvReac Type Severity Reaction Status Date / Time No Known Allergies Allergy Verified 02/18/23 18:56 Review of Systems ROS Statement: Those systems with pertinent positive or pertinent negative responses have been documented in the HPI. ROS Other: All systems not noted in ROS Statement are negative. Past Medical History Past Medical History: GERD/Reflux History of Any Multi-Drug Resistant Organisms: None Reported Past Surgical History: Appendectomy, Orthopedic Surgery Additional Past Surgical History / Comment(s): rt knee- ACL repair Past Psychological History: No Psychological Hx Reported Smoking Status: Current every day smoker Past Alcohol Use History: Rare Past Drug Use History: Marijuana General Exam Limitations: no limitations General appearance: alert, in no apparent distress Head exam: Present: atraumatic, normocephalic, normal inspection Eye exam: Present: normal appearance, EOMI ENT exam: Present: normal oropharynx, mucous membranes moist Neck exam: Present: normal inspection, full ROM Respiratory exam: Present: normal lung sounds bilaterally. Absent: respiratory distress, wheezes, rales, rhonchi, stridor Cardiovascular Exam: Present: regular rate, normal rhythm, normal heart sounds. Absent: systolic murmur, diastolic murmur, rubs, gallop, clicks Neurological exam: Present: alert, oriented X3, CN II-XII intact Psychiatric exam: Present: normal affect, normal mood Skin exam: Present: warm, dry, intact, normal color. Absent: rash Course Vital Signs 02/18/23 18:54 Temperature 100.0 F H Pulse Rate 115 H Respiratory 22 Rate Blood Pressure 152/99 O2 Sat by Pulse 99 Oximetry Medical Decision Making - Medical Decision Making Was pt. sent in by a medical professional or institution (, PA, LOOM OPERATOR APPRENTICE, urgent care, hospital, or residential...) When possible be specific @ -No Did you speak to anyone other than the patient for history (EMS, parent, family, police, friend...)? What history was obtained from this source @ -No Did you review nursing and triage notes (agree or disagree)? Why? @ -I reviewed and agree with nursing and triage notes Were old charts reviewed (outside hosp., previous admission, EMS record, old EKG, old radiological studies, urgent care reports/EKG's, residential records)? Report findings @ -No old charts were reviewed Differential Diagnosis (chest pain, altered mental status, abdominal pain women, abdominal pain men, vaginal bleeding, weakness, fever, dyspnea, syncope, headache, dizziness, GI bleed, back pain, seizure, CVA, palpatations, mental health, musculoskeletal)? @ -Differential includes bronchitis, URI, viral pharyngitis, this is not an all inclusive list EKG interpreted by me (3pts min.). @ -As above X-rays interpreted by me (1pt min.). @ -None done CT interpreted by me (1pt min.). @ -None done U/S interpreted by me (1pt. min.). @ -None done What testing was considered but not performed or refused? (CT, X-rays, U/S, labs)? Why? @ -None What meds were considered but not given or refused? Why? @ -None Did you discuss the management of the patient with other professionals (professionals i.e. , GLEN, LOOM OPERATOR APPRENTICE, lab, RT, psych nurse, social professionals, commodities manager, teacher, air control/anti air warfare officer, case finisher)? Give summary @ -No Was smoking cessation discussed for >3mins.? @ -No Was critical care preformed (if so, how long)? @ -No Were there social determinants of health that impacted care today? How? (Homelessness, low income, unemployed, alcoholism, drug addiction, transportation, low edu. Level, literacy, decrease access to med. care, half-way, rehab)? @ -No Was there de-escalation of care discussed even if they declined (Discuss DNR or withdrawal of care, Hospice)? DNR status @ -No What co-morbidities impacted this encounter? (DM, HTN, Smoking, COPD, CAD, Cancer, CVA, ARF, Chemo, Hep., AIDS, mental health diagnosis, sleep apnea, morbid obesity)? @ -None Was patient admitted / discharged? Hospital course, mention meds given and route, prescriptions, significant lab abnormalities, going to OR and other pertinent info. @ -32-year-old male presenting with chief complaint of fever, cough, congestion, sore throat. Has been ongoing for the last day. On physical examination heart and lungs are clear to auscultation, normal posterior pharynx. Patient is negative for Covid, influenza, RSV. He is educated on signs findings on supportive management at home. Follow-up with PCP. Report back to ER with any new or worsening symptoms. Discussed return parameters and answered all questions. Patient conveyed verbal understanding and agreed to the plan. I discussed this case in detail with my attending Dr. Mejia Undiagnosed new problem with uncertain prognosis? @ -No Drug Therapy requiring intensive monitoring for toxicity (Heparin, Nitro, Insulin, Cardizem)? @ -No Were any procedures done? @ -No Diagnosis/symptom? @ -URI Acute, or Chronic, or Acute on Chronic? @ -Acute Uncomplicated (without systemic symptoms) or Complicated (systemic symptoms)? @ -Uncomplicated Side effects of treatment? @ -No Exacerbation, Progression, or Severe Exacerbation? @ -No Poses a threat to life or bodily function? How? (Chest pain, [place], [place], pneumonia, PE, COPD, DKA, ARF, appy, cholecystitis, CVA, Diverticulitis, Homicidal, Suicidal, threat to staff... and all critical care pts) @ -No - Lab Data Lab Results 02/18/23 Range/Units 18:58 Influenza Type A (PCR) Not Detected (Not Detectd) Influenza Type B (PCR) Not Detected (Not Detectd) RSV (PCR) Not Detected (Not Detectd) SARS-CoV-2 (PCR) Not Detected (Not Detectd) Disposition Clinical Impression: Acute upper respiratory infection Disposition: HOME SELF-CARE Condition: Good Instructions (If sedation given, give patient instructions): Upper Respiratory Infection (ED) Additional Instructions: Follow-up with PCP. Report back to ER with any new or worsening symptoms. Alternate Motrin and Tylenol seated for fever and pain control. Stay well- hydrated and get plenty of rest. Is patient prescribed a controlled substance at d/c from ED?: No Referrals: Sunilkumar,Mini, MD [Primary Care Provider] - 1-2 days Time of Disposition: 20:05
== END 2023-02-18 20:43 | disposition home or self-care (01) ==
LOC: EC 18:52
DX: J06.9 Acute upper respiratory infection, unspecified (principal); F17.200 Nicotine dependence, unspecified, uncomplicated; F12.90 Cannabis use, unspecified, uncomplicated; Z20.822 Contact with and (suspected) exposure to COVID-19
CPT/HCPCS: 87636; 99283

== ENCOUNTER 2023-10-12 05:52 | Emergency (ER) | payer BC, OTHER ==
--- NOTE | 2023-10-12 06:29 | ED ---
Animal Bite HPI - General Chief Complaint: Animal Bite Stated Complaint: dog bite Time Seen by Provider: 10/12/23 06:03 Source: patient, RN notes reviewed Mode of arrival: ambulatory Limitations: no limitations - History of Present Illness Initial Comments: 33-year-old male presents emergency department chief complaint of a dog bite to his left arm. He states was his own dog. Patient states he is up-to-date on his tetanus dogs are up-to-date on their vaccines. He states there are few puncture wounds to his left arm. Patient denies any paresthesias no decreased movement no other complaints. - Related Data Previous Rx's Medication Instructions Recorded Amoxic-Pot Clav 875-125Mg 1 tab PO Q12HR #20 tab 10/12/23 [Augmentin 875-125] Allergies Allergy/AdvReac Type Severity Reaction Status Date / Time No Known Allergies Allergy Verified 10/12/23 06:02 Review of Systems ROS Statement: Those systems with pertinent positive or pertinent negative responses have been documented in the HPI. ROS Other: All systems not noted in ROS Statement are negative. Past Medical History Past Medical History: GERD/Reflux History of Any Multi-Drug Resistant Organisms: None Reported Past Surgical History: Appendectomy, Orthopedic Surgery Additional Past Surgical History / Comment(s): rt knee- ACL repair Past Psychological History: No Psychological Hx Reported Smoking Status: Former smoker Past Alcohol Use History: Rare Past Drug Use History: Marijuana General Exam Limitations: no limitations General appearance: alert, in no apparent distress Head exam: Present: atraumatic, normocephalic, normal inspection Eye exam: Present: normal appearance, PERRL, EOMI. Absent: scleral icterus, conjunctival injection, periorbital swelling Respiratory exam: Present: normal lung sounds bilaterally. Absent: respiratory distress, wheezes, rales, rhonchi, stridor Cardiovascular Exam: Present: regular rate, normal rhythm, normal heart sounds. Absent: systolic murmur, diastolic murmur, rubs, gallop, clicks Extremities exam: Present: other (Left arm 2 small puncture wounds left arm, 1/2 cm laceration, full range of motion neurovascular intact) Course Vital Signs 10/12/23 06:00 Temperature 98 F Pulse Rate 87 Respiratory 18 Rate Blood Pressure 149/93 O2 Sat by Pulse 98 Oximetry Procedures - Laceration Laceration #1 Consent Obtained: verbal consent Indication: laceration Site: upper extremity (Left forearm) Size (cm): 0 (0.5cm) Description: linear Depth: simple, single layer Pre-repair: wound explored, irrigated extensively, deep structures intact Type of Sutures: nylon Size of Sutures: 4-0 Number of Sutures: 1 Patient Tolerated Procedure: well, no complications Medical Decision Making - Medical Decision Making Was pt. sent in by a medical professional or institution (GLEN Mckeon, OPERATIONS TRAINER, urgent care, hospital, or fdc...) When possible be specific @ -No Did you speak to anyone other than the patient for history (EMS, parent, family, police, friend...)? What history was obtained from this source @ -No Did you review nursing and triage notes (agree or disagree)? Why? @ -I reviewed and agree with nursing and triage notes Were old charts reviewed (outside hosp., previous admission, EMS record, old EKG, old radiological studies, urgent care reports/EKG's, fdc records)? Report findings @ -No old charts were reviewed Differential Diagnosis (chest pain, altered mental status, abdominal pain women, abdominal pain men, vaginal bleeding, weakness, fever, dyspnea, syncope, headache, dizziness, GI bleed, back pain, seizure, CVA, palpatations, mental health, musculoskeletal)? @ -Dog bite, laceration EKG interpreted by me (3pts min.). @ -None X-rays interpreted by me (1pt min.). @ -X-ray left forearm no foreign body noted CT interpreted by me (1pt min.). @ -None done U/S interpreted by me (1pt. min.). @ -None done What testing was considered but not performed or refused? (CT, X-rays, U/S, labs)? Why? @ -None What meds were considered but not given or refused? Why? @ -None Did you discuss the management of the patient with other professionals (professionals i.e. GLEN Mckeon, OPERATIONS TRAINER, lab, RT, psych nurse, secondary social studies teacher, appliances sample maker, teacher, college service officer, case preparer and liner)? Give summary @ -No Was smoking cessation discussed for >3mins.? @ -No Was critical care preformed (if so, how long)? @ -No Were there social determinants of health that impacted care today? How? (Homelessness, low income, unemployed, alcoholism, drug addiction, transportation, low edu. Level, literacy, decrease access to med. care, half-way, re hab)? @ -No Was there de-escalation of care discussed even if they declined (Discuss DNR or withdrawal of care, Hospice)? DNR status @ -No What co-morbidities impacted this encounter? (DM, HTN, Smoking, COPD, CAD, Cancer, CVA, ARF, Chemo, Hep., AIDS, mental health diagnosis, sleep apnea, morbid obesity)? @ -None Was patient admitted / discharged? Hospital course, mention meds given and route, prescriptions, significant lab abnormalities, going to OR and other pertinent info. @ -Discharge patient laceration had 1 suture loosely approximated, tetanus is up-to-date Augmentin was prescribed and provided in the emergency department. Patient discharged in stable condition. Undiagnosed new problem with uncertain prognosis? @ -No Drug Therapy requiring intensive monitoring for toxicity (Heparin, Nitro, Insulin, Cardizem)? @ -No Were any procedures done? @ -No Diagnosis/symptom? @ -[Dog bite Acute, or Chronic, or Acute on Chronic? @ -Acute Uncomplicated (without systemic symptoms) or Complicated (systemic symptoms)? @ -Uncomplicated Side effects of treatment? @ -No Exacerbation, Progression, or Severe Exacerbation? @ -No Poses a threat to life or bodily function? How? (Chest pain, USA, [place], pneumonia, PE, COPD, DKA, ARF, appy, cholecystitis, CVA, Diverticulitis, Homicidal, Suicidal, threat to staff... and all critical care pts) @ -No Disposition Clinical Impression: Dog bite Disposition: HOME SELF-CARE Condition: Stable Instructions (If sedation given, give patient instructions): Animal Bite (ED) Additional Instructions: Please return to the Emergency Department if symptoms worsen or any other concerns. Have suture removed in 10 days Prescriptions: Amoxic-Pot Clav 875-125Mg [Augmentin 875-125] 1 tab PO Q12HR #20 tab Is patient prescribed a controlled substance at d/c from ED?: No Referrals: Cherelle Swanson MD [Primary Care Provider] - 1-2 days Time of Disposition: 06:29
[2023-10-12] MEDS: AMOXIC-POT CLAV 875-125MG 1 EACH TAB PO STA (06:30)
[2023-10-12] MEDS: BACITRACIN OINT 1 EACH PACKET TOPICAL ONE (06:30)
[2023-10-12 06:43] VITALS: RESP 18
[2023-10-12 07:31] VITALS: BP 140/90; PULSE 80; TEMP 98.1
--- NOTE | 2023-10-12 07:33 | XR ---
EXAMINATION TYPE: XR forearm LT DATE OF EXAM: 10/12/2023 COMPARISON: NONE HISTORY: 33-year-old male bite, pain TECHNIQUE: 2 views FINDINGS: Both elbow and wrist articulations are grossly intact. No retained radiopaque foreign body seen. No soft tissue air is identified. No acute fracture. No periostitis or osteolysis. IMPRESSION: No acute osseous abnormality seen.
== END 2023-10-12 06:50 | disposition home or self-care (01) ==
LOC: EC 05:52
DX: S41.152A Open bite of left upper arm, initial encounter (principal); Z87.891 Personal history of nicotine dependence; W54.0XXA Bitten by dog, initial encounter
CPT/HCPCS: 12001; 99283

== ENCOUNTER 2024-01-14 22:40 | Emergency (ER) | payer BC ==
[2024-01-15] MEDS ORDERED: MELATONIN 5 MG TABLET ONE (02:15)
[2024-01-15] MEDS ORDERED: hydrOXYzine pamoate 25 MG CAP ONE (02:26)
== END 2024-01-15 11:30 | disposition home or self-care (01) ==
LOC: EC 22:40
DX: F32.A Depression, unspecified (principal)
CPT/HCPCS: 99284

== ENCOUNTER 2024-02-23 20:46 | Emergency (ER) | payer SELFPAY ==
[2024-02-23 20:54] VITALS: RESP 18
--- NOTE | 2024-02-23 21:32 | ED ---
URI HPI - General Chief Complaint: Upper Respiratory Infection Stated Complaint: Fever, Body aches, Sore throat Time Seen by Provider: 02/23/24 21:30 Source: patient, RN notes reviewed Mode of arrival: ambulatory Limitations: no limitations - History of Present Illness Initial Comments: 33-year-old male with no significant past medical history presenting with sore throat is 4 hours with associated nasal congestion, body aches, and fevers. Patient is able to swallow. Denies cough, chest pain, shortness of breath. Denies cardiac or pulmonary history. He took an [id number] cold and flu medication with Tylenol which mildly relieves symptoms. Denies sick contacts. - Related Data Previous Rx's Medication Instructions Recorded Amoxic-Pot Clav 875-125Mg 1 tab PO Q12HR #20 tab 10/12/23 [Augmentin 875-125] Allergies Allergy/AdvReac Type Severity Reaction Status Date / Time No Known Allergies Allergy Verified 02/23/24 20:54 Review of Systems ROS Statement: Those systems with pertinent positive or pertinent negative responses have been documented in the HPI. ROS Other: All systems not noted in ROS Statement are negative. Past Medical History Past Medical History: GERD/Reflux History of Any Multi-Drug Resistant Organisms: None Reported Past Surgical History: Appendectomy, Orthopedic Surgery Additional Past Surgical History / Comment(s): rt knee- ACL repair Past Psychological History: No Psychological Hx Reported Smoking Status: Former smoker Past Alcohol Use History: Rare Past Drug Use History: Marijuana General Exam Limitations: no limitations General appearance: alert, in no apparent distress Head exam: Present: atraumatic, normocephalic, normal inspection ENT exam: Present: normal exam, mucous membranes moist. Absent: normal oropharynx (Tonsils 2+ and erythematous bilaterally, no exudate, uvula midline) Neck exam: Present: normal inspection. Absent: tenderness, meningismus, lymphadenopathy Respiratory exam: Present: normal lung sounds bilaterally. Absent: respiratory distress, wheezes, rales, rhonchi, stridor Cardiovascular Exam: Present: regular rate, normal rhythm, normal heart sounds. Absent: systolic murmur, diastolic murmur, rubs, gallop, clicks Neurological exam: Present: alert, oriented X3 Psychiatric exam: Present: normal affect, normal mood Skin exam: Present: warm, dry, intact, normal color. Absent: rash Course Vital Signs 02/23/24 02/23/24 20:50 23:10 Temperature 100.4 F H 100.7 F H Pulse Rate 94 91 Respiratory 18 18 Rate Blood Pressure 148/89 132/83 O2 Sat by Pulse 94 L 97 Oximetry Medical Decision Making - Medical Decision Making Was pt. sent in by a medical professional or institution (GLEN Mckeon, JAVA SECURITY ARCHITECT, urgent care, hospital, or retirement...) When possible be specific @ -No Did you speak to anyone other than the patient for history (EMS, parent, family, police, friend...)? What history was obtained from this source @ -No Did you review nursing and triage notes (agree or disagree)? Why? @ -I reviewed and agree with nursing and triage notes Were old charts reviewed (outside hosp., previous admission, EMS record, old EKG, old radiological studies, urgent care reports/EKG's, retirement records)? Report findings @ -No old charts were reviewed Differential Diagnosis (chest pain, altered mental status, abdominal pain women, abdominal pain men, vaginal bleeding, weakness, fever, dyspnea, syncope, headache, dizziness, GI bleed, back pain, seizure, CVA, palpatations, mental health, musculoskeletal)? @ -COVID-19, influenza, viral URI, strep pharyngitis, pneumonia EKG interpreted by me (3pts min.). @ -None X-rays interpreted by me (1pt min.). @ -None done CT interpreted by me (1pt min.). @ -None done U/S interpreted by me (1pt. min.). @ -None done What testing was considered but not performed or refused? (CT, X-rays, U/S, labs)? Why? @ -Chest x-ray considered however not performed due to symptom onset less than 1 day What meds were considered but not given or refused? Why? @ -Patient declined ibuprofen or Tylenol for fever Did you discuss the management of the patient with other professionals (professionals i.e. GLEN Mckeon, JAVA SECURITY ARCHITECT, lab, RT, psych nurse, neonatal social worker, harm reduction worker, teacher, consumer loan officer, director case)? Give summary @ -No Was smoking cessation discussed for >3mins.? @ -No Was critical care preformed (if so, how long)? @ -No Were there social determinants of health that impacted care today? How? (Ho melessness, low income, unemployed, alcoholism, drug addiction, transportation, low edu. Level, literacy, decrease access to med. care, fpc, rehab)? @ -No Was there de-escalation of care discussed even if they declined (Discuss DNR or withdrawal of care, Hospice)? DNR status @ -No What co-morbidities impacted this encounter? (DM, HTN, Smoking, COPD, CAD, Cancer, CVA, ARF, Chemo, Hep., AIDS, mental health diagnosis, sleep apnea, morbid obesity)? @ -None Was patient admitted / discharged? Hospital course, mention meds given and route, prescriptions, significant lab abnormalities, going to OR and other pertinent info. @ -Patient was discharged. This is a 33-year-old male with no significant past medical history presenting with nasal congestion x 4 hours with associated sore throat, body aches, and fevers. No red flag symptoms. Patient is febrile at 100.4, nontachycardic. No sign of labored breathing. Heart and lungs clear to auscultation bilaterally. COVID positive, influenza, strep, and RSV negative. Discussed diagnosis of COVID-19 with patient. Antivirals not indicated at this time as patient has no risk factors. Supportive care discussed as well as return precautions and patient conveyed understanding and agrees to plan. Case discussed with my ED attending Dr. Llanos. Patient discharged in stable condition. Undiagnosed new problem with uncertain prognosis? @ -No Drug Therapy requiring intensive monitoring for toxicity (Heparin, Nitro, Insulin, Cardizem)? @ -No Were any procedures done? @ -No Diagnosis/symptom? @ -COVID-19 Acute, or Chronic, or Acute on Chronic? @ -Acute Uncomplicated (without systemic symptoms) or Complicated (systemic symptoms)? @ -Uncomplicated Side effects of treatment? @ -No Exacerbation, Progression, or Severe Exacerbation? @ -No Poses a threat to life or bodily function? How? (Chest pain, [place], [place], pneumonia, PE, COPD, DKA, ARF, appy, cholecystitis, CVA, Diverticulitis, Homicidal, Suicidal, threat to staff... and all critical care pts) @ -Not at this time - Lab Data Lab Results 02/23/24 02/23/24 Range/Units 21:00 21:36 Influenza Type A (PCR) Not Detected (Not Detectd) Influenza Type B (PCR) Not Detected (Not Detectd) RSV (PCR) Not Detected (Not Detectd) SARS-CoV-2 (PCR) Detected A (Not Detectd) Group A Strep (PCR) NOT DETECTED (Not Detectd) Disposition Clinical Impression: COVID-19 Disposition: HOME SELF-CARE Condition: Stable Instructions (If sedation given, give patient instructions): How to Recover from COVID-19 at Home (ED) Additional Instructions: Take ibuprofen or Tylenol as needed for fever or pain. Please return to the Emergency Department if symptoms worsen or any other concerns. Is patient prescribed a controlled substance at d/c from ED?: No Referrals: Cherelle Swanson MD [Primary Care Provider] - 1-2 days Time of Disposition: 23:14
[2024-02-23 23:11] VITALS: BP 132/83; PULSE 91; TEMP 100.7
== END 2024-02-23 23:30 | disposition home or self-care (01) ==
LOC: EC 20:46
CPT/HCPCS: 87636; 87651; 99283; 99284